=== PATIENT | male | born 1935 | race Caucasian/White ===

== ENCOUNTER 2019-09-24 21:03 | Inpatient (IN) ==
[2019-09-24] MEDS ORDERED: PANTOPRAZOLE 40 MG VIAL IV STA (22:19)
[2019-09-24] MEDS ORDERED: HYDROmorphone 2 MG/1 ML VIAL IV STA (22:19)
[2019-09-24] MEDS ORDERED: ONDANSETRON 4 MG/2 ML VIAL IV STA (22:19)
[2019-09-24] MEDS ORDERED: SODIUM CHLORIDE 0.9% 500 ML IV STA (22:19)
[2019-09-24 22:40] LABS: Basophils % 0.1 % (0.0-0.8); Eosinophils # 0.1 10*3/uL (0.0-0.87); Eosinophils % 0.5 % (0.00-10.9); Hematocrit 43.9 VOL% (42.0-52.0); Hemoglobin 14.5 GM/DL (14.0-18.0); Immature Granulocytes % 0.5 %; Immature Granulocytes Absolute 0.09 #; Lymphocytes # 1.3 10*3/uL (1.4-4.0); Lymphocytes % 6.7 % (21.2-54.2); Mean Corpuscular Volume 92.6 FL (87-102); Mean Platelet Volume 9.9 FL (9.6-12.0); Monocytes % 6.1 % (1.7-12.7); Neutrophils % 86.1 % (38.7-73.9); Platelet Count 242 T/CUMM (130-400); Red Blood Count 4.74 MC/CUMM (3.8-5.5); Red Cell Distribution Width 13.2 % (9.3-17.3); White Blood Count 18.7 T/CUMM (4-12)
[2019-09-24 22:54] LABS: Apearance,Urine CLEAR (Clear); Bilirubin,Urine Negative (Negative); Blood, Urine Moderate mg/dL (Negative); Calcium Oxalate Crystals,Urine Occasional /HPF (Few); Glucose,Urine (UA) Negative (Negative); Hyaline Casts,Urine 7 /LPF (0-3); Ketones,Urine Negative (Negative); Mucus,Urine Occasional /LPF (Occasional); Nitrite,Urine Negative (Negative); Protein,Urine Negative; RBC,Urine 48 /HPF (0-4); Squamous Epithelial Cell,Urine Occasional /HPF (0-10); Urine Color Yellow (Yellow); Urine Specific Gravity 1.011 (1.001-1.035); WBC,Urine 2 /HPF (0-6)
[2019-09-24 22:58] LABS: Albumin 3.3 G/DL (3.4-5.0); Bilirubin,Total 0.8 MG/DL (0.2-1.0); Calcium 8.7 MG/DL (8.5-10.1); Osmolality,Calculated 284.4 MOS/KG (273-304); Total Protein 7.4 G/DL (6.4-8.3)
[2019-09-25] MEDS ORDERED: ONDANSETRON 4 MG/2 ML VIAL IV PRN (00:33)
[2019-09-25] MEDS ORDERED: TUBERCULIN SKIN TEST 0.1 ML SYRINGE INTRADERM ONE (03:00)
[2019-09-25] MEDS: SODIUM CHLORIDE 0.9% 1,000 ML IV SCH ×2 (03:08→16:04)
[2019-09-25] MEDS: POTASSIUM CHLORIDE 20 MEQ TABLET PO SCH (09:02)
[2019-09-25] MEDS: CLOPIDOGREL 75 MG TABLET PO SCH (09:02)
[2019-09-25] MEDS: FUROSEMIDE 40 MG TABLET PO SCH (09:02)
[2019-09-25] MEDS: carvediloL 3.125 MG TABLET PO SCH ×2 (09:02→17:05)
[2019-09-25] MEDS: DONEPEZIL 5 MG TABLET PO SCH (09:02)
[2019-09-25] MEDS: TAMSULOSIN 0.4 MG CAPSULE PO SCH (09:02)
[2019-09-25] MEDS: PANTOPRAZOLE 40 MG TABLET PO SCH (09:02)
[2019-09-25] MEDS: DESITIN 4OZ/NYSTATIN 15 GRAM MIXTURE PASTE TOP SCH ×2 (12:51→21:03)
[2019-09-25 14:15] LABS: Basophils % 0.2 % (0.0-0.8); Eosinophils % 0.3 % (0.00-10.9); Hematocrit 43.8 VOL% (42.0-52.0); Hemoglobin 14.5 GM/DL (14.0-18.0); Immature Granulocytes % 0.5 %; Immature Granulocytes Absolute 0.07 #; Lymphocytes # 1.4 10*3/uL (1.4-4.0); Lymphocytes % 10.2 % (21.2-54.2); Mean Corpuscular HGB Conc 33.1 GM/DL (32-36); Mean Corpuscular Volume 90.9 FL (87-102); Monocytes % 8.9 % (1.7-12.7); Neutrophils % 79.9 % (38.7-73.9); Platelet Count 214 T/CUMM (130-400); Red Blood Count 4.82 MC/CUMM (3.8-5.5); Red Cell Distribution Width 13.3 % (9.3-17.3); White Blood Count 13.9 T/CUMM (4-12)
[2019-09-25 14:33] LABS: Calcium 8.8 MG/DL (8.5-10.1); Osmolality,Calculated 276.8 MOS/KG (273-304)
[2019-09-25] MEDS: QUEtiapine 25 MG TABLET PO SCH ×2 (21:02→21:03)
[2019-09-25] MEDS: ATORVASTATIN 80 MG TABLET PO SCH (21:03)
[2019-09-26 05:17] LABS: Basophils % 0.3 % (0.0-0.8); Eosinophils # 0.1 10*3/uL (0.0-0.87); Eosinophils % 1.4 % (0.00-10.9); Hematocrit 42.3 VOL% (42.0-52.0); Hemoglobin 13.8 GM/DL (14.0-18.0); Immature Granulocytes % 0.4 %; Immature Granulocytes Absolute 0.04 #; Lymphocytes % 18.9 % (21.2-54.2); Mean Corpuscular HGB Conc 32.6 GM/DL (32-36); Mean Corpuscular Volume 92.8 FL (87-102); Mean Platelet Volume 10.9 FL (9.6-12.0); Monocytes % 10.7 % (1.7-12.7); Neutrophils % 68.3 % (38.7-73.9); Platelet Count 181 T/CUMM (130-400); Red Blood Count 4.56 MC/CUMM (3.8-5.5); Red Cell Distribution Width 13.3 % (9.3-17.3); White Blood Count 10.4 T/CUMM (4-12)
[2019-09-26] MEDS: SODIUM CHLORIDE 0.9% 1,000 ML IV SCH ×2 (05:19→22:03)
[2019-09-26 05:38] LABS: Calcium 8.2 MG/DL (8.5-10.1); Osmolality,Calculated 278.5 MOS/KG (273-304)
[2019-09-26] MEDS: FUROSEMIDE 40 MG TABLET PO SCH (10:05)
[2019-09-26] MEDS: carvediloL 3.125 MG TABLET PO SCH ×2 (10:05→17:28)
[2019-09-26] MEDS: CLOPIDOGREL 75 MG TABLET PO SCH (10:05)
[2019-09-26] MEDS: DESITIN 4OZ/NYSTATIN 15 GRAM MIXTURE PASTE TOP SCH ×2 (10:05→22:04)
[2019-09-26] MEDS: POTASSIUM CHLORIDE 20 MEQ TABLET PO SCH (10:05)
[2019-09-26] MEDS: PANTOPRAZOLE 40 MG TABLET PO SCH (10:05)
[2019-09-26] MEDS: DONEPEZIL 5 MG TABLET PO SCH (10:05)
[2019-09-26] MEDS: TAMSULOSIN 0.4 MG CAPSULE PO SCH (10:05)
[2019-09-26] MEDS: QUEtiapine 25 MG TABLET PO SCH (22:03)
[2019-09-26] MEDS: ATORVASTATIN 80 MG TABLET PO SCH (22:03)
[2019-09-27 06:21] LABS: Basophils % 0.3 % (0.0-0.8); Eosinophils # 0.2 10*3/uL (0.0-0.87); Eosinophils % 1.6 % (0.00-10.9); Hematocrit 43.4 VOL% (42.0-52.0); Hemoglobin 14.1 GM/DL (14.0-18.0); Immature Granulocytes % 0.6 %; Immature Granulocytes Absolute 0.07 #; Lymphocytes # 1.6 10*3/uL (1.4-4.0); Lymphocytes % 13.5 % (21.2-54.2); Mean Corpuscular HGB Conc 32.5 GM/DL (32-36); Mean Corpuscular Volume 92.7 FL (87-102); Mean Platelet Volume 10.5 FL (9.6-12.0); Monocytes % 10.8 % (1.7-12.7); Neutrophils % 73.2 % (38.7-73.9); Platelet Count 207 T/CUMM (130-400); Red Blood Count 4.68 MC/CUMM (3.8-5.5); Red Cell Distribution Width 13.1 % (9.3-17.3); White Blood Count 11.8 T/CUMM (4-12)
[2019-09-27 06:38] LABS: Osmolality,Calculated 278.5 MOS/KG (273-304)
[2019-09-27] MEDS: carvediloL 3.125 MG TABLET PO SCH ×2 (10:44→16:20)
[2019-09-27] MEDS: CLOPIDOGREL 75 MG TABLET PO SCH (10:44)
[2019-09-27] MEDS: DONEPEZIL 5 MG TABLET PO SCH (10:44)
[2019-09-27] MEDS: FUROSEMIDE 40 MG TABLET PO SCH (10:44)
[2019-09-27] MEDS: POTASSIUM CHLORIDE 20 MEQ TABLET PO SCH (10:44)
[2019-09-27] MEDS: TAMSULOSIN 0.4 MG CAPSULE PO SCH (10:44)
[2019-09-27] MEDS: PANTOPRAZOLE 40 MG TABLET PO SCH (10:44)
[2019-09-27] MEDS: SODIUM CHLORIDE 0.9% 1,000 ML IV SCH (10:47)
[2019-09-27] MEDS: DESITIN 4OZ/NYSTATIN 15 GRAM MIXTURE PASTE TOP SCH ×2 (10:49→22:13)
[2019-09-27] MEDS: cefTRIAXone 2,000 MG in SYRINGE 1 EACH IV SCH (18:23)
[2019-09-27] MEDS: QUEtiapine 25 MG TABLET PO SCH (22:13)
[2019-09-27] MEDS: ATORVASTATIN 80 MG TABLET PO SCH (22:13)
[2019-09-28] MEDS: SODIUM CHLORIDE 0.9% 1,000 ML IV SCH ×2 (00:47→13:42)
[2019-09-28 06:20] LABS: Basophils % 0.2 % (0.0-0.8); Eosinophils # 0.1 10*3/uL (0.0-0.87); Eosinophils % 0.7 % (0.00-10.9); Hematocrit 45.8 VOL% (42.0-52.0); Immature Granulocytes % 0.5 %; Immature Granulocytes Absolute 0.07 #; Lymphocytes # 1.4 10*3/uL (1.4-4.0); Mean Corpuscular HGB Conc 32.8 GM/DL (32-36); Mean Platelet Volume 10.9 FL (9.6-12.0); Monocytes % 11.1 % (1.7-12.7); Neutrophils % 77.5 % (38.7-73.9); Platelet Count 251 T/CUMM (130-400); Red Blood Count 4.98 MC/CUMM (3.8-5.5); Red Cell Distribution Width 13.1 % (9.3-17.3); White Blood Count 14.3 T/CUMM (4-12)
[2019-09-28 06:59] LABS: Calcium 8.4 MG/DL (8.5-10.1); Osmolality,Calculated 280.4 MOS/KG (273-304)
[2019-09-28] MEDS: CLOPIDOGREL 75 MG TABLET PO SCH (10:10)
[2019-09-28] MEDS: TAMSULOSIN 0.4 MG CAPSULE PO SCH (10:10)
[2019-09-28] MEDS: ACETAMINOPHEN 325 MG TABLET PO PRN ×2 (10:11→21:26)
[2019-09-28] MEDS: DONEPEZIL 5 MG TABLET PO SCH (10:12)
[2019-09-28] MEDS: FUROSEMIDE 40 MG TABLET PO SCH (10:12)
[2019-09-28] MEDS: POTASSIUM CHLORIDE 20 MEQ TABLET PO SCH (10:12)
[2019-09-28] MEDS: PANTOPRAZOLE 40 MG TABLET PO SCH (10:12)
[2019-09-28] MEDS: carvediloL 3.125 MG TABLET PO SCH ×2 (10:13→17:28)
[2019-09-28] MEDS: DESITIN 4OZ/NYSTATIN 15 GRAM MIXTURE PASTE TOP SCH ×2 (10:13→21:27)
[2019-09-28] MEDS ORDERED: POTASSIUM CHLORIDE 20 MEQ TABLET PO ONE (10:57)
[2019-09-28] MEDS: cefTRIAXone 2,000 MG in SYRINGE 1 EACH IV SCH (17:28)
[2019-09-28] MEDS: QUEtiapine 25 MG TABLET PO SCH (21:26)
[2019-09-28] MEDS: ATORVASTATIN 80 MG TABLET PO SCH (21:27)
[2019-09-29] MEDS: SODIUM CHLORIDE 0.9% 1,000 ML IV SCH ×2 (03:31→16:57)
[2019-09-29] MEDS: PANTOPRAZOLE 40 MG TABLET PO SCH (09:14)
[2019-09-29] MEDS: POTASSIUM CHLORIDE 20 MEQ TABLET PO SCH (09:14)
[2019-09-29] MEDS: CLOPIDOGREL 75 MG TABLET PO SCH (09:15)
[2019-09-29] MEDS: TAMSULOSIN 0.4 MG CAPSULE PO SCH (09:15)
[2019-09-29] MEDS: DONEPEZIL 5 MG TABLET PO SCH (09:15)
[2019-09-29] MEDS: FUROSEMIDE 40 MG TABLET PO SCH (09:15)
[2019-09-29] MEDS: carvediloL 3.125 MG TABLET PO SCH ×2 (09:15→16:57)
[2019-09-29 09:16] LABS: Basophils % 0.3 % (0.0-0.8); Eosinophils # 0.1 10*3/uL (0.0-0.87); Eosinophils % 0.6 % (0.00-10.9); Hematocrit 45.6 VOL% (42.0-52.0); Hemoglobin 15.2 GM/DL (14.0-18.0); Immature Granulocytes % 0.4 %; Immature Granulocytes Absolute 0.04 #; Lymphocytes # 1.5 10*3/uL (1.4-4.0); Lymphocytes % 13.3 % (21.2-54.2); Mean Corpuscular HGB Conc 33.3 GM/DL (32-36); Mean Corpuscular Volume 90.8 FL (87-102); Mean Platelet Volume 10.2 FL (9.6-12.0); Monocytes % 13.5 % (1.7-12.7); Neutrophils % 71.9 % (38.7-73.9); Platelet Count 259 T/CUMM (130-400); Red Blood Count 5.02 MC/CUMM (3.8-5.5); Red Cell Distribution Width 13.2 % (9.3-17.3); White Blood Count 11.1 T/CUMM (4-12)
[2019-09-29] MEDS: DESITIN 4OZ/NYSTATIN 15 GRAM MIXTURE PASTE TOP SCH ×2 (09:24→20:45)
[2019-09-29 09:42] LABS: Calcium 8.3 MG/DL (8.5-10.1); Osmolality,Calculated 282.4 MOS/KG (273-304)
[2019-09-29] MEDS: cefTRIAXone 2,000 MG in SYRINGE 1 EACH IV SCH (16:57)
[2019-09-29] MEDS: ACETAMINOPHEN 325 MG TABLET PO PRN (20:44)
[2019-09-29] MEDS: ATORVASTATIN 80 MG TABLET PO SCH (20:45)
[2019-09-29] MEDS: QUEtiapine 25 MG TABLET PO SCH (20:45)
[2019-09-30 05:40] LABS: Basophils % 0.3 % (0.0-0.8); Eosinophils # 0.2 10*3/uL (0.0-0.87); Eosinophils % 2.4 % (0.00-10.9); Hematocrit 40.7 VOL% (42.0-52.0); Hemoglobin 13.7 GM/DL (14.0-18.0); Immature Granulocytes % 0.5 %; Immature Granulocytes Absolute 0.05 #; Lymphocytes # 1.9 10*3/uL (1.4-4.0); Lymphocytes % 20.2 % (21.2-54.2); Mean Corpuscular HGB Conc 33.7 GM/DL (32-36); Mean Corpuscular Volume 91.1 FL (87-102); Monocytes % 12.7 % (1.7-12.7); Neutrophils % 63.9 % (38.7-73.9); Platelet Count 234 T/CUMM (130-400); Red Blood Count 4.47 MC/CUMM (3.8-5.5); Red Cell Distribution Width 13.1 % (9.3-17.3); White Blood Count 9.6 T/CUMM (4-12)
[2019-09-30] MEDS: SODIUM CHLORIDE 0.9% 1,000 ML IV SCH ×3 (05:48→21:05)
[2019-09-30 06:08] LABS: Osmolality,Calculated 284.1 MOS/KG (273-304)
[2019-09-30] MEDS: FUROSEMIDE 40 MG TABLET PO SCH (09:42)
[2019-09-30] MEDS: carvediloL 3.125 MG TABLET PO SCH ×2 (09:43→16:43)
[2019-09-30] MEDS: POTASSIUM CHLORIDE 20 MEQ TABLET PO SCH (09:43)
[2019-09-30] MEDS: DONEPEZIL 5 MG TABLET PO SCH (09:43)
[2019-09-30] MEDS: TAMSULOSIN 0.4 MG CAPSULE PO SCH (09:43)
[2019-09-30] MEDS: CLOPIDOGREL 75 MG TABLET PO SCH (09:43)
[2019-09-30] MEDS: PANTOPRAZOLE 40 MG TABLET PO SCH (09:43)
[2019-09-30] MEDS: DESITIN 4OZ/NYSTATIN 15 GRAM MIXTURE PASTE TOP SCH ×2 (09:43→21:10)
[2019-09-30] MEDS: cefTRIAXone 2,000 MG in SYRINGE 1 EACH IV SCH (16:42)
[2019-09-30] MEDS: ATORVASTATIN 80 MG TABLET PO SCH (21:07)
[2019-09-30] MEDS: ACETAMINOPHEN 325 MG TABLET PO PRN (21:07)
[2019-09-30] MEDS: QUEtiapine 25 MG TABLET PO SCH (21:08)
[2019-10-01 06:52] LABS: Basophils % 0.4 % (0.0-0.8); Eosinophils # 0.3 10*3/uL (0.0-0.87); Eosinophils % 3.6 % (0.00-10.9); Hematocrit 41.5 VOL% (42.0-52.0); Hemoglobin 13.3 GM/DL (14.0-18.0); Immature Granulocytes % 0.9 %; Immature Granulocytes Absolute 0.07 #; Lymphocytes # 1.5 10*3/uL (1.4-4.0); Lymphocytes % 20.2 % (21.2-54.2); Mean Corpuscular Volume 93.3 FL (87-102); Mean Platelet Volume 10.1 FL (9.6-12.0); Monocytes % 11.6 % (1.7-12.7); Neutrophils % 63.3 % (38.7-73.9); Platelet Count 251 T/CUMM (130-400); Red Blood Count 4.45 MC/CUMM (3.8-5.5); White Blood Count 7.4 T/CUMM (4-12)
[2019-10-01 07:08] LABS: Calcium 8.3 MG/DL (8.5-10.1); Osmolality,Calculated 281.1 MOS/KG (273-304)
[2019-10-01] MEDS ORDERED: POTASSIUM CHLORIDE RIDER 10 MEQ in PREMIX 1 EACH IV PRN (07:53)
[2019-10-01] MEDS: SODIUM CHLORIDE 0.9% 1,000 ML IV SCH (09:54)
[2019-10-01] MEDS: CLOPIDOGREL 75 MG TABLET PO SCH (09:55)
[2019-10-01] MEDS: PANTOPRAZOLE 40 MG TABLET PO SCH (09:55)
[2019-10-01] MEDS: carvediloL 3.125 MG TABLET PO SCH (09:55)
[2019-10-01] MEDS: POTASSIUM CHLORIDE 20 MEQ TABLET PO SCH (09:55)
[2019-10-01] MEDS: TAMSULOSIN 0.4 MG CAPSULE PO SCH (09:55)
[2019-10-01] MEDS: DONEPEZIL 5 MG TABLET PO SCH (09:56)
[2019-10-01] MEDS: FUROSEMIDE 40 MG TABLET PO SCH (09:56)
[2019-10-01] MEDS: POTASSIUM CHLORIDE 20 MEQ TABLET PO PRN ×2 (10:20→12:11)
[2019-10-01] MEDS: DESITIN 4OZ/NYSTATIN 15 GRAM MIXTURE PASTE TOP SCH (12:11)
[2019-10-01 16:58] VITALS: BP 126/89
== END 2019-10-01 18:02 | disposition swing bed (61) | DRG 389 ==
LOC: EDBD → EDUNIT# → N.ED 21:03 → N.EDINP 21:03 → SUATTDRO 09-25 00:33 → N.5E 09-25 01:48 → SUATTDRO 09-28 14:59
PROVIDERS: ADMIT Internal Medicine; ATTEND Emergency Medicine